=== PATIENT | female | born 1985 | race Hispanic/Latino ===

== ENCOUNTER 2023-10-26 13:02 | Outpatient (CLI) | payer OTHER | END 2023-10-26 13:03 | disposition home or self-care (01) | LOC: RAD 13:02 | PROVIDERS: ATTEND Plastic Surgery | DX: Z01.818 Encounter for other preprocedural examination (principal) | CPT/HCPCS: 71046 ==

== ENCOUNTER 2023-11-04 10:02 | Outpatient (CLI) | payer OTHER | END 2023-11-04 10:03 | disposition home or self-care (01) | LOC: EKG 10:02 | PROVIDERS: ATTEND Plastic Surgery | DX: Z01.810 Encounter for preprocedural cardiovascular examination (principal); R94.31 Abnormal electrocardiogram [ECG] [EKG] | CPT/HCPCS: 93005; 93010 ==